=== PATIENT | male | born 1995 | race Two or more races ===

== ENCOUNTER 2020-02-26 06:11 | Emergency (ER) | payer OTHER ==
[~2020-02-26] VITALS: Ht 170.2 cm; Wt 55.9 kg
[2020-02-26] MEDS ORDERED: KETOROLAC 30 MG/ML 1ML VIAL IV ONE (07:00)
[2020-02-26] MEDS ORDERED: NS 1,000 ML IV ONE (07:00)
[2020-02-26 07:12] LABS: BASO % 0.1 % (0.0-1.0); EOS # 0.1 10^3/uL (0.0-0.5); HEMATOCRIT 44.4 % (42.0-52.0); HEMOGLOBIN 13.9 g/dl (13.5-17.5); LYMPH # 1.2 10^3/uL (1.5-5.0); LYMPH % 17.2 % (24.0-44.0); MEAN CORPUSCULAR HEMOGLOBIN 28.7 pg (27.0-33.0); MEAN CORPUSCULAR HGB CONC 31.3 g/dl (32.0-36.5); MEAN CORPUSCULAR VOLUME 91.5 fl (80.0-96.0); MONO # 0.4 10^3/uL (0.0-0.8); MONO % 6.4 % (0.0-5.0); PLATELET COUNT, AUTOMATED 174 10^3/uL (150-450); RED BLOOD COUNT 4.85 10^6/uL (4.30-6.10); WHITE BLOOD COUNT 6.7 10^3/uL (4.0-10.0)
[2020-02-26 07:42] LABS: ALBUMIN 4.2 GM/DL (3.2-5.2); ALT/SGPT 15 U/L (12-78); BILIRUBIN,DIRECT 0.1 MG/DL (0.0-0.2); BILIRUBIN,TOTAL 0.6 MG/DL (0.2-1.0); BLOOD UREA NITROGEN 12 MG/DL (7-18); CARBON DIOXIDE LEVEL 29 MEQ/L (21-32); CHLORIDE LEVEL 107 MEQ/L (98-107); CREATININE FOR GFR 0.99 MG/DL (0.70-1.30); GLOMERULAR FILTRATION RATE > 60.0 (>60); GLUCOSE, FASTING 101 MG/DL (70-100); LIPASE 107 U/L (73-393); POTASSIUM SERUM 3.9 MEQ/L (3.5-5.1); SODIUM LEVEL 140 MEQ/L (136-145); TOTAL PROTEIN 7.4 GM/DL (6.4-8.2)
--- NOTE | 2020-02-26 08:11 | REPVR ---
PROCEDURE INFORMATION: Exam: US Scrotum Exam date and time: 02/26/2020 7:42 AM Age: 24 years old Clinical indication: Scrotum pain; Additional info: Pain in left testicle TECHNIQUE: Imaging protocol: Real-time ultrasound of the scrotum and contents with color Doppler and image documentation. COMPARISON: No relevant prior studies available. FINDINGS: Right testicle: 2.1 x 0.9 x 1.7 cm. Nonspecific 2.5 mm hypoechoic intratesticular focus. No torsion. Normal vascular flow. The arterial resistive index is 0.59. Left testicle: 2.3 x 1.3 x 1.9 cm. No mass. No torsion. Normal vascular flow. The arterial resistive index is 0.61. Epididymides: Right epididymal head 8 mm. 5.5 mm anechoic right epididymal cyst. Left epididymal head 9 mm. 4.1 mm anechoic left epididymal cyst. Scrotum: Normal. IMPRESSION: Nonspecific small right intratesticular hypoechoic focus. Follow-up recommended. Incidental bilateral epididymal cysts. Electronically signed by: Bernabe Wade On 02/26/2020 08:11:45 AM
--- NOTE | 2020-02-26 08:44 | REP ---
INDICATION: L flank pain r/o kidney stone COMPARISON: None TECHNIQUE: Axial noncontrast images from the lung bases to the pubic symphysis with coronal and sagittal reformations. This CT examination was performed using the following dose reduction techniques: Automated exposure control, adjustment of mA and/or kv according to the patient's size, and use of iterative reconstruction technique. FINDINGS: Mild left-sided hydroureter secondary to a 2 mm obstructing calculus at the ureterovesical junction (UVJ) (series 201; image 128). Smaller intrarenal nonobstructing calculi cannot be excluded bilaterally. Liver, spleen, pancreas, gallbladder, and bilateral adrenal glands are normal. The enteric system is without obstruction or acute inflammatory process. Normal terminal ileum and appendix identified in the right lower quadrant. Further evaluation of the pelvis demonstrates partially collapsed normal bladder and age-appropriate prostate/seminal vesicles. No ascites. No free air. No adenopathy. Abdominal aorta appears normal. Surrounding musculoskeletal structures are intact and normal. IMPRESSION: Early acute left-sided obstructive uropathy with a 2 mm calculus at the UVJ. <Electronically signed by Aj Miles > 02/26/20 [id number]
[2020-02-26] MEDS ORDERED: KETO10TAB PO (09:32)
[2020-02-26] MEDS ORDERED: FLOM0.4C39 PO (09:32)
[2020-02-26 09:39] VITALS: BP 126/71
== END 2020-02-26 09:41 | disposition home or self-care (01) ==
LOC: M ED 06:11
DX: N20.0 Calculus of kidney (principal)
CPT/HCPCS: 36415; 74176; 76870; 80048; 80076; 81001; 83690; 85025; 93976; 99284; J1885

== ENCOUNTER 2020-02-26 23:50 | Emergency (ER) | payer OTHER ==
[~2020-02-26] VITALS: Ht 170.2 cm; Wt 57.0 kg
[~2020-02-26 23:50] MED LIST: FLOM0.4C39 PO; KETO10TAB PO
[2020-02-26 23:51] VITALS: BP 133/75
--- NOTE | 2020-02-27 08:59 | ED PDOC ---
Post-Departure Follow-Up radiology report faxed to [facility] Lili Hahn MD Feb 27, 2020 08:59
== END 2020-02-27 01:08 | disposition left against medical advice (07) ==
LOC: M ED 23:50
DX: Z53.21 Procedure and treatment not carried out due to patient leaving prior to being seen by health care provider (principal)

== ENCOUNTER → 2020-05-26 | Outpatient (CLI) | payer OTHER ==
--- NOTE | 2020-05-26 10:05 | REP ---
INDICATION: TESTICULAR LESION COMPARISON: 02/26/2020 TECHNIQUE: Rivas scale and color Doppler evaluation using linear and curved array transducer with color Doppler evaluation. FINDINGS: The bilateral testicles appear decreased in size with somewhat heterogeneous echotexture having few scattered hypodensities bilaterally and similar to prior examination. The vascularity to the bilateral testicles is symmetric and normal without evidence for acute infectious/inflammatory process or torsion. Incidental right epididymal head cyst measures 7 mm maximal diameter and left epididymal head cyst measures 5 mm maximal diameter. No hydroceles. No varicoceles. Right testicle measures 2.0 x 1.0 x 1.5 cm. Left testicle measures 2.6 x 1.1 x 1.6 cm. IMPRESSION: Essentially no change from prior examination. Findings again include symmetric decreased testicular size heterogeneous echotexture. <Electronically signed by Aj Milse > 05/26/20 [id number]
== END ==
LOC: M RAD 09:09
PROVIDERS: ATTEND Nurse Practitioner Women's Health
DX: N50.9 Disorder of male genital organs, unspecified (principal)

== ENCOUNTER → 2020-10-05 | Outpatient (CLI) | payer OTHER ==
--- NOTE | 2020-10-05 16:36 | REP ---
INDICATION: TESTICULAR PAIN. COMPARISON: Scrotal ultrasound studies dated 02/26/2020 and 05/26/2020. TECHNIQUE: Um multiple ultrasonographic images of the scrotum including Doppler ultrasound. FINDINGS: The right testis measures 2.0 x 0.9 x 1.4 cm. The left testis measures 2.4 x 1.2 x 1.5 cm. The testes are small size for patient age but are unchanged from the prior studies. There is vascular flow in each testis with the Doppler resistive act index in the parenchymal arteries of the right testis measuring 0.66 and left testis measuring 0.51. There are approximately 2 small hypoechoic zones in each testis each measuring approximately 1-2 mm in diameter, similar to the prior study, nonspecific but no interval change, no interval size increase. The right epididymal head measures 11 mm and contains a cyst measuring 4 x 7 mm. The left epididymal head measures 10 mm and contains a cyst measuring 3 x 5 mm. IMPRESSION: No significant change from the prior studies. The small hypoechoic zones in each testis are of uncertain significance but there is no interval size increase. Correlation with serum tumor markers might be considered. <Electronically signed by Octavio Maldonado > 10/05/20 [id number]
== END ==
LOC: M RAD 15:33
PROVIDERS: ATTEND Urology
DX: N50.819 Testicular pain, unspecified (principal)